=== PATIENT | male | born 1975 | race Caucasian/White ===

== ENCOUNTER 2017-05-10 10:31 | Outpatient (CLI) | payer OTHER ==
--- NOTE | 2017-05-11 17:35 | XRAY Report ---
CHEST PA AND LATERAL: 05/10/2017 CLINICAL HISTORY: The patient has a persistent cough. He finished a course of antibiotics on Tuesday. FINDINGS: The bony thorax is normal. The heart and great vessels are normal. The mediastinum is not widened. The pulmonary parenchyma appears normal. IMPRESSION: NORMAL EXAMINATION. JOB #: [id number] EXT JOB #:[id number]
== END 2017-05-10 10:32 | disposition home or self-care (01) ==
LOC: DI 10:31
PROVIDERS: ATTEND Nurse Practitioner Family
DX: R05 Cough (principal); R06.02 Shortness of breath
CPT/HCPCS: 71020

== ENCOUNTER 2017-12-28 10:14 | Outpatient (CLI) | payer OTHER ==
--- NOTE | 2017-12-28 11:40 | XRAY Report ---
TWO VIEW CHEST: 12/28/2017 CLINICAL INDICATION: Dyspnea. COMPARISON: 05/10/2017 FINDINGS: Frontal and lateral views of the chest demonstrate a normal cardiac silhouette. The lungs are clear. No effusion or pneumothorax is present. IMPRESSION: NORMAL CHEST, UNCHANGED. TD: 12/28/2017 11:39
== END 2017-12-28 10:15 | disposition home or self-care (01) ==
LOC: DI 10:14
PROVIDERS: ATTEND Internal Medicine
DX: R06.00 Dyspnea, unspecified (principal)
CPT/HCPCS: 71046

== ENCOUNTER 2018-10-19 22:53 | Emergency (ER) | payer OTHER ==
[2018-10-20] MEDS ORDERED: SODIUM CHLORIDE 0.9% 1,000 ML IV ONE (00:45)
[2018-10-20] MEDS ORDERED: DEXAMETHASONE 10 MG/ML VIAL IVP STA (00:45)
[2018-10-20] MEDS ORDERED: diphenhydrAMINE INJ 50 MG/ML VIAL IVP STA (00:45)
[2018-10-20] MEDS ORDERED: PROCHLORPERAZINE 10 MG/2 ML VIAL IVP STA (00:45)
[2018-10-20] MEDS ORDERED: KETOROLAC 30 MG/ML VIAL IVP STA (00:45)
--- NOTE | 2018-10-20 00:47 | ED Physician Documentation ---
PD HPI HEADACHE - Stated complaint Stated Complaint: POWERS - Chief complaint Chief Complaint: Neuro - History obtained from History obtained from: Patient - History of Present Illness Timing - onset: How many weeks ago (3) Timing - onset during: Rest Timing - duration: Weeks (3) Timing - details: Abrupt onset, Still present, Waxing and waning Worst headache ever?: No: Worst headache ever? Location: Global Quality: Throbbing Associated symptoms: Nausea, Vomiting, Vision changes Improved by: Rest, Dark room, Quiet, Meds Worsened by: Light, Noise, Moving Contributing factors: No: Anticoagulated Similar symptoms before: Diagnosis (migraine) Recently seen: Not recently seen - Additional information Additional information: 43-year-old male with a lifelong history of migraine headaches usually has an aura where he loses central vision and following that developed a headache. His headache pattern is usually 1 or 2 headaches per month and this is been consistent and is usually been able to control these with retreat to a darkened room or some ibuprofen. This headache is specifically started on September 29, 2018 and he has not been able get control of the headache. He has had this every day he has had some nausea and vomiting he has had some good days and some bad days and he is decided to come into the emergency department today when his headache was worse and he continued to have nausea. He has not vomited today. Review of Systems Constitutional: denies: Fever Eyes: reports: Loss of vision. denies: Decreased vision Ears: denies: Ear pain Nose: denies: Rhinorrhea / runny nose, Congestion Throat: denies: Sore throat Cardiac: denies: Chest pain / pressure, Palpitations Respiratory: denies: Dyspnea, Cough GI: reports: Nausea, Vomiting, Diarrhea (resolved from 2 days ago). denies: Abdominal Pain : denies: Dysuria, Frequency Skin: denies: Rash Musculoskeletal: denies: Neck pain, Back pain, Extremity pain Neurologic: reports: Headache. denies: Generalized weakness, Focal weakness, Numbness, Difficulty speaking, Syncope, Confused, Altered mental status, Head injury, LOC PD PAST MEDICAL HISTORY - Past Medical History Past Medical History: Yes Neuro: Migraines - Past Surgical History Past Surgical History: Yes HEENT: Tonsil/Adenoidectomy - Present Medications Home Medications: Ambulatory Orders Medication Instructions Recorded Confirmed No Known Home Medications 01/04/16 10/20/18 - Allergies Allergies/Adverse Reactions: Allergies Allergy/AdvReac Type Severity Reaction Status Date / Time doxycycline Allergy Rash Verified 10/19/18 23:12 meperidine HCl * Allergy Unknown Verified 10/19/18 23:12 [From Demerol] Penicillins Allergy Anaphylaxis Verified 10/19/18 23:12 - Social History Does the pt smoke?: No Smoking Status: Never smoker Does the pt drink ETOH?: Yes Does the pt have substance abuse?: No - Immunizations Immunizations are current?: Yes - POLST Patient has POLST: No PD ED PE NORMAL - Vitals Vital signs reviewed: Yes (hypertensive ) - General General: Alert and oriented X 3, No acute distress, Well developed/nourished - HEENT HEENT: Atraumatic, PERRL, EOMI, Ears normal, Moist mucous membranes, Pharynx benign, Dentition benign, Other (photo sensitive) - Neck Neck: Supple, no meningeal sign, No bony TTP - Cardiac Cardiac: RRR, No murmur - Respiratory Respiratory: No respiratory distress, Clear bilaterally - Abdomen Abdomen: Soft, Non tender - Back Back: No CVA TTP, No spinal TTP - Derm Derm: Normal color, Warm and dry, No rash - Extremities Extremities: No deformity, No edema - Neuro Neuro: Alert and oriented X 3, 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 He is administered intravenous saline, dexamethasone, Compazine, Benadryl and Toradol. Departure - Departure Disposition: 01 Home, Self Care Clinical Impression: Migraine Qualifiers: Migraine type: with aura Status migrainosus presence: without status migrainosus Intractability: not intractable Qualified Code(s): G43.109 - Migraine with aura, not intractable, without status migrainosus Condition: Stable Instructions: ED Headache Migraine Follow-Up: Giles Arana MD [Primary Care Provider] -
[2018-10-20 02:22] VITALS: BP 114/80
== END 2018-10-20 02:27 | disposition home or self-care (01) ==
LOC: ED 22:53
DX: G43.109 Migraine with aura, not intractable, without status migrainosus (principal)
CPT/HCPCS: 96361; 96374; 96375; 99283; J1200

== ENCOUNTER 2018-12-29 08:02 | Emergency (ER) | payer OTHER ==
[2018-12-29] MEDS ORDERED: diphenhydrAMINE INJ 50 MG/ML VIAL IVP STA (09:23)
[2018-12-29] MEDS ORDERED: SODIUM CHLORIDE 0.9% 1,000 ML IV ONE (09:23)
[2018-12-29] MEDS ORDERED: PROCHLORPERAZINE 10 MG/2 ML VIAL IVP STA (09:24)
[2018-12-29] MEDS ORDERED: KETOROLAC 30 MG/ML VIAL IVP STA (09:24)
[2018-12-29] MEDS ORDERED: DEXAMETHASONE 10 MG/ML VIAL PO STA (09:24)
--- NOTE | 2018-12-29 09:27 | ED Physician Documentation ---
PD HPI HEADACHE - Stated complaint Stated Complaint: HEADACHE/NECK PAIN - Chief complaint Chief Complaint: General - History obtained from History obtained from: Patient - History of Present Illness Timing - onset: How many weeks ago (2) Timing - onset during: Rest Timing - details: Still present Location: Global Associated symptoms: Stiff neck, Nausea. No: Fever, Vomiting Worsened by: Noise Contributing factors: No: Trauma Similar symptoms before: Diagnosis (migraines) - Additional information Additional information: The patient is a 43-year-old male with a lifelong history of migraine headaches, who presents with a global headache that has been persistent for the past 2 weeks. It is different from previous headaches in that he also complains of a stiff neck. His neck soreness has been present for nearly a month. He denies fever, but has been chilled over the past 3 days. He reports nausea, without vomiting. He has had a cough for the past 2 weeks, the pain is worse with coughing. He also reports photosensitivity. The last time he had a headache this bad was about 3 months ago. He has tried using ibuprofen, without relief. Review of Systems Constitutional: reports: Chills. denies: Fever Eyes: denies: Photophobia Ears: reports: Other (otosensivity). denies: Ear pain Nose: denies: Congestion Throat: denies: Sore throat Cardiac: denies: Chest pain / pressure Respiratory: reports: Cough (slight). denies: Dyspnea GI: reports: Nausea. denies: Abdominal Pain, Vomiting : denies: Dysuria, Incontinent Skin: denies: Rash Musculoskeletal: reports: Neck pain. denies: Back pain, Extremity pain Neurologic: reports: Headache. denies: Focal weakness, Numbness, Head injury PD PAST MEDICAL HISTORY - Past Medical History Neuro: Migraines Endocrine/Autoimmune: None Other Past Medical History: recently completed azithromycin for possible epidimydis. - Past Surgical History Past Surgical History: Yes HEENT: Tonsil/Adenoidectomy - Present Medications Home Medications: Ambulatory Orders Medication Instructions Recorded Confirmed Cyclobenzaprine [Flexeril] 10 mg PO TID PRN #20 tablet 12/29/18 oxyCODONE [Roxicodone] 5 mg PO BID PRN #10 tablet 12/29/18 - Allergies Allergies/Adverse Reactions: Allergies Allergy/AdvReac Type Severity Reaction Status Date / Time doxycycline Allergy Rash Verified 12/29/18 08:17 meperidine HCl * Allergy Unknown Verified 12/29/18 08:17 [From Demerol] Penicillins Allergy Anaphylaxis Verified 12/29/18 08:17 - Social History Does the pt smoke?: No Smoking Status: Never smoker Does the pt drink ETOH?: Yes Does the pt have substance abuse?: No - Immunizations Immunizations are current?: Yes - POLST Patient has POLST: No PD ED PE NORMAL - Vitals Vital signs reviewed: Yes (Borderline hypertension initially.) - General General: Alert and oriented X 3, Well developed/nourished - HEENT HEENT: Atraumatic, PERRL, EOMI, Ears normal, Pharynx benign, Other (Fundi is margins, without papilledema.) - Neck Neck: Supple, no meningeal sign, No bony TTP, No adenopathy, Other (Mild paracervical muscle tenderness bilaterally, more on the left than the right. He has slightly decreased range of motion of the neck due to muscular discomfort. He can touch his chin to his chest without difficulty.) - Cardiac Cardiac: RRR, No murmur - Respiratory Respiratory: No respiratory distress, Clear bilaterally - Abdomen Abdomen: Soft, Non tender - Back Back: No CVA TTP - Derm Derm: No rash - Extremities Extremities: No edema, No calf tenderness / cord - Neuro Neuro: Alert and oriented X 3, No motor deficit, No sensory deficit, Normal speech Results - Vitals Vitals: Oxygen O2 Source Room air PD MEDICAL DECISION MAKING - ED course Complexity details: reviewed old records, re-evaluated patient, considered differential, d/w patient ED course: The patient's headache is most likely due to muscle tension, with cervical muscle spasms. His presentation does not suggest meningitis, intracranial hemorrhage, temporal arteritis, or pseudotumor cerebri. He may well have viral syndrome as an exacerbating factor. Treatment in the emergency department included administration of normal saline 1 L IV, Compazine 10 mg IV, Benadryl 25 mg IV, ketorolac 30 mg IV, dexamethasone 10 mg orally, and hydrocodone 5 mg orally. His headache markedly improved with the above treatment. On reexamination he is much more comfortable. He is being discharged with prescriptions for Flexeril and for oxycodone, 10 tablets. I discussed with him symptomatic treatment, outpatient follow-up, as well as potentially worrisome signs or symptoms that should prompt reevaluation in the emergency department. Departure - Departure Disposition: 01 Home, Self Care Clinical Impression: Myalgia Cephalgia Qualifiers: Headache type: tension-type Headache chronicity pattern: episodic headache Intractability: not intractable Qualified Code(s): G44.219 - Episodic tension- type headache, not intractable Condition: Stable Instructions: ED Headache Tension Follow-Up: Giles Arana MD [Provider Admit Priv/Credential] - Prescriptions: Cyclobenzaprine [Flexeril] 10 mg PO TID PRN #20 tablet PRN Reason: Spasms oxyCODONE [Roxicodone] 5 mg PO BID PRN #10 tablet PRN Reason: Pain Comments: Drink plenty of fluids, You can use ibuprofen, up to 800 mg 3 times daily for its anti-inflammatory effect. You can use Flexeril 3 times daily as prescribed if needed for muscle spasms. You can use oxycodone as prescribed if needed for headache or neck pain. Follow-up with your primary physician within 1-2 weeks. Call to schedule an ap pointment. Return to the emergency department if you develop increasing headache, fever with shaking chills, persistent vomiting, or otherwise worsening symptoms. Discharge Date/Time: 12/29/18 11:22
[2018-12-29] MEDS ORDERED: HYDROcod/ACETAM 5/325 MG TABLET PO STA (10:53)
[2018-12-29] MEDS ORDERED: oxyCODONE 5 MG TABLET PO STA (10:56)
[2018-12-29 11:03] VITALS: BP 106/58
== END 2018-12-29 11:22 | disposition home or self-care (01) ==
LOC: ED 08:02
DX: G44.219 Episodic tension-type headache, not intractable (principal); M79.10 Myalgia, unspecified site
CPT/HCPCS: 96361; 96374; 96375; 99283; A9270; J1200

== ENCOUNTER 2019-11-22 17:11 | Outpatient (CLI) | payer OTHER ==
[2019-11-22 17:26] LABS: BASOPHILS % (AUTO) 0.4 %; EOSINOPHILS # (AUTO) 0.2 10^3/uL (0.0-0.7); EOSINOPHILS % (AUTO) 2.6 %; HGB - HEMOGLOBIN 15.6 g/dL (14.0-18.0); LYMPHOCYTES # (AUTO) 2.1 10^3/uL (1.5-3.5); LYMPHOCYTES % (AUTO) 23.7 %; MEAN CORPUSCULAR HEMOGLOBIN 30.7 pg (27.0-31.0); MEAN CORPUSCULAR HGB CONC 33.1 g/dL (32.0-36.0); MEAN CORPUSCULAR VOLUME 92.9 fL (80.0-94.0); MEAN PLATELET VOLUME 9.8 fL (7.4-11.4); MONOCYTES # (AUTO) 0.8 10^3/uL (0.0-1.0); MONOCYTES % (AUTO) 8.8 %; NEUTROPHILS # (AUTO) 5.7 10^3/uL (1.5-6.6); NEUTROPHILS % (AUTO) 63.9 %; PLT - PLATELET COUNT 260 10^3/uL (130-450); RED BLOOD COUNT 5.08 10^6/uL (4.70-6.10); RED CELL DISTRIBUTION WIDTH 12.3 % (12.0-15.0)
[2019-11-22 17:49] LABS: ALBUMIN 5.1 g/dL (3.2-5.5); ALBUMIN/GLOBULIN RATIO 1.9 (1.0-2.2); BILIRUBIN,TOTAL 1.1 mg/dL (0.2-1.0); CALCIUM 9.2 mg/dL (8.5-10.3); TOTAL PROTEIN 7.8 g/dL (6.7-8.2)
== END 2019-11-22 17:12 | disposition home or self-care (01) ==
LOC: LAB 17:11
PROVIDERS: ATTEND Nurse Practitioner Family
DX: G43.909 Migraine, unspecified, not intractable, without status migrainosus (principal); R45.4 Irritability and anger; R55 Syncope and collapse
CPT/HCPCS: 36415; 80053; 81599; 85025

== ENCOUNTER 2019-11-22 17:25 | Outpatient (CLI) | payer OTHER ==
--- NOTE | 2019-11-23 09:10 | XRAY Report ---
Reason: TIGHT CHEST Procedure Date: 11/22/2019 Accession Number: [id number] / [id number] Procedure: XR - Chest 2 View X-Ray CPT Code: 19468 Final Report FULL RESULT: EXAM: CHEST RADIOGRAPHY 2 VIEWS EXAM DATE: 11/22/2019. CLINICAL HISTORY: Chest tightness. COMPARISON: PA and lateral chest on 12/28/2017. TECHNIQUE: PA and lateral views. FINDINGS: Lungs/Pleura: Normal vasculature. The lungs are clear. No pleural fluid or pneumothorax. Mediastinum: Normal cardiac and mediastinal contours. Bones: Normal. IMPRESSION: Normal PA and lateral chest radiography. No change from 12/28/2017. RADIA
== END 2019-11-22 17:26 | disposition home or self-care (01) ==
LOC: DI 17:25
PROVIDERS: ATTEND Nurse Practitioner Family
DX: R07.89 Other chest pain (principal); G43.909 Migraine, unspecified, not intractable, without status migrainosus; R45.4 Irritability and anger; R55 Syncope and collapse
CPT/HCPCS: 36415; 71046; 80053; 81599; 85025

== ENCOUNTER 2021-09-23 11:36 | Outpatient (CLI) | payer OTHER ==
--- NOTE | 2021-09-23 16:25 | XRAY Report ---
PROCEDURE: Wrist 3 View RT INDICATIONS: PAIN IN RIGHT WRIST TECHNIQUE: 3 views of the wrist were acquired. COMPARISON: X-ray hand 09/23/2021 FINDINGS: Bones: No fractures or dislocations. No suspicious bony lesions. Scaphoid view: Not obtained. Soft tissues: No suspicious soft tissue calcifications. There is a mild prominent soft tissue shado w adjacent to the fifth metacarpal. Underlying osseous structure is intact. IMPRESSION: Nonspecific prominence of soft tissue shadow adjacent to the fifth metacarpal. It is considered indet erminate on the basis of this exam. MRI is recommended for further evaluation. Reviewed by: Yuli Prescott MD on 09/23/2021 4:24 PM PST Approved by: Yuli Prescott MD on 09/23/2021 4:24 PM [facility] Station ID: [id number]
--- NOTE | 2021-09-23 16:57 | XRAY Report ---
PROCEDURE: Hand 3 View RT INDICATIONS: SWELLING,MASS LUMP PAIN RT HAND RT WRIST TECHNIQUE: 3 views of the hand(s) acquired. COMPARISON: None FINDINGS: Bones: No acute fractures or dislocations. No suspicious bony lesions. No bony abnormalities ident ified over the ulnar side of the right hand correlating with the BB skin marker. Soft tissues: No suspicious soft tissue calcifications. No suspicious soft tissue mass lesions. IMPRESSION: Right hand without acute fracture or dislocation. No osseous or soft tissue abnormalities correlating with palpable area of patient concern as indicated by the BB skin marker projecting over the ulnar a spect of the right hand. If there is persistent clinical concern for radiographically occult mass, co nsider further evaluation with contrast-enhanced MRI. Reviewed by: Gibson Ruth MD on 09/23/2021 4:55 PM PST Approved by: Gibson Ruth MD on 09/23/2021 4:[address] [facility] Station ID: [id number]
== END 2021-09-23 11:37 | disposition home or self-care (01) ==
LOC: DI 11:36
PROVIDERS: ATTEND Physician Assistant
DX: M25.531 Pain in right wrist (principal); R93.6 Abnormal findings on diagnostic imaging of limbs; R93.89 Abnormal findings on diagnostic imaging of other specified body structures

== ENCOUNTER 2024-04-25 07:00 | Outpatient (CLI) | payer MEDICAID, OTHER | END 2024-04-25 23:59 | disposition home or self-care (01) | LOC: LAB.S 07:00 | PROVIDERS: ATTEND Physician Assistant Medical | DX: R07.0 Pain in throat (principal) | CPT/HCPCS: 87070 ==